=== PATIENT | male | born 1985 | race Hispanic/Latino ===

== ENCOUNTER 2023-09-07 15:16 | Emergency (ER) | payer BC, OTHER ==
[~2023-09-07] VITALS: Ht 177.8 cm; Wt 113.4 kg
[~2023-09-07 15:16] MED LIST: LEVO750T39 PO
[2023-09-07 15:20] VITALS: BP 148/93; PULSE 96; RESP 18
== END 2023-09-07 17:11 | disposition home or self-care (01) ==
LOC: EDH 15:16
DX: Z00.00 Encounter for general adult medical examination without abnormal findings (principal)
CPT/HCPCS: 99281

== ENCOUNTER 2023-10-27 20:02 | Emergency (ER) | payer BC ==
[~2023-10-27] VITALS: Ht 177.8 cm; Wt 95.3 kg
[2023-10-27 20:40] LABS: APPEARANCE,URINE CLEAR (CLEAR); BILIRUBIN,URINE NEGATIVE (NEGATIVE); COLOR,URINE LIGHT-YELLOW (YELLOW); GLUCOSE, URINE (UA) 70 mg/dL (NEGATIVE); KETONES,URINE NEGATIVE (NEGATIVE); LEUKOCYTE ESTERASE ,URINE NEGATIVE Leu/uL (NEGATIVE); NITRATE,URINE NEGATIVE (NEGATIVE); OCCULT BLOOD,URINE NEGATIVE (NEGATIVE); PH,URINE 7.5 (5.0-8.0); PROTEIN,URINE NEGATIVE (NEGATIVE); UROBILINOGEN,URINE 3 mg/dL (0.2-1.0)
[2023-10-27 20:41] LABS: ADD UA MICROSCOPIC YES
[2023-10-27 20:43] LABS: BACTERIA,URINE RARE /HPF (None Seen); MUCUS,URINE RARE LPF (None Seen); SQUAMOUS EPITHELIAL CELL,UR RARE /HPF (0-2); WBC,URINE 0-1 /HPF (0-1)
[2023-10-27 20:47] LABS: AMPHET/METH SCREEN,URINE NEGATIVE (NEGATIVE); BARBITURATE SCREEN, URINE NEGATIVE (NEGATIVE); BENZODIAZEPINES SCREEN,URINE NEGATIVE (NEGATIVE); CANNABINOID SCREEN,URINE POSITIVE (NEGATIVE); COCAINE SCREEN,URINE POSITIVE (NEGATIVE); OPIATE SCREEN,URINE NEGATIVE (NEGATIVE); PHENCYCLIDINE SCREEN,URINE NEGATIVE (NEGATIVE)
[2023-10-27] MEDS: DIAZEPAM 5 MG TABLET PO ONE (20:54)
[2023-10-27] MEDS: KETOROLAC 30MG VIAL (30MG/ML) IM ONE (20:55)
[2023-10-27] MEDS ORDERED: CYCL5TAB PO (21:12)
[2023-10-27] MEDS ORDERED: IBUP-2070 PO (21:28)
[2023-10-27 21:38] VITALS: BP 126/86; PULSE 87; RESP 20; O2SAT 100
== END 2023-10-27 21:40 | disposition home or self-care (01) ==
LOC: EDH 20:02
DX: M54.32 Sciatica, left side (principal); F14.10 Cocaine abuse, uncomplicated; F12.10 Cannabis abuse, uncomplicated; Z79.899 Other long term (current) drug therapy
CPT/HCPCS: 99284; 80305; 81001; 72100; 96372; J1885